=== PATIENT | female | born 1965 | race Caucasian/White ===

== ENCOUNTER → 2017-12-02 10:00 | Outpatient (CLI) | payer OTHER ==
[~2017-12-02 10:00] MED LIST: CALTRATE 600+D1 EAC1 PO; CALTRATE 600600 MG; CALTRATE 600600 MG PO; COREG 3.125 MG PO; COREG 6.25 MG PO; COREG CR10 MG; COREG CR10 MG PO; DECADRON P4 MG/ML-1M IH; DURICEF 500 MG CAPSULE PO; ESTR0.624 PO; HCTZ 12.5 MG PO; HYDROCHLOROTHIA25 MG; KETO10TA2 PO; LIPITOR20 MG PO; MEDROL4 MG PO; MOTRIN800 MG; MOTRIN800 MG PO; NEURONTIN800 MG; NEURONTIN800 MG PO; OXYC1TAB9 PO; PAMELOR10 M1 PO; PREMARIN0.45 MG; PREMARIN0.45 MG PO; REQUIP3 MG PO; TORADOL60 MG IM; TRAM1TAB98 PO; VOLTAREM 50 MG PO; VOLTAREM 75 MG; VOLTAREN PO; VOLTAREN75 MG; ZANTAC300 MG; ZANTAC300 MG PO; [UNRECOGNIZED DRUG - OTHER] PO
== END | disposition home or self-care (01) ==
LOC: PPHC 10:00
DX: M54.5 Low back pain (principal)

== ENCOUNTER 2017-12-11 08:38 | Outpatient (CLI) | payer OTHER | END 2017-12-11 08:41 | disposition home or self-care (01) | LOC: MRI 08:38 | DX: M51.36 Other intervertebral disc degeneration, lumbar region (principal) | CPT/HCPCS: 72148 ==

== ENCOUNTER 2017-12-22 05:59 | Emergency (ER) | payer OTHER ==
[~2017-12-22] VITALS: Ht 157.5 cm; Wt 79.4 kg
[2017-12-22] MEDS ORDERED: OSEL75CA PO (09:24)
== END 2017-12-22 10:49 | disposition home or self-care (01) ==
LOC: ER 05:59
DX: B34.9 Viral infection, unspecified (principal)

== ENCOUNTER → 2017-12-28 | Outpatient (CLI) | payer OTHER ==
[~2017-12-28] VITALS: Ht 152.4 cm; Wt 76.2 kg
[~2017-12-28] MED LIST changes: +OSEL75CA PO; +VOLTAREN-XR100 MG
== END | disposition home or self-care (01) ==
LOC: PPHC 08:46
DX: M54.5 Low back pain (principal); J06.9 Acute upper respiratory infection, unspecified

== ENCOUNTER → 2018-03-23 | Outpatient (CLI) | payer OTHER | END | disposition home or self-care (01) | LOC: PPHC 12:08 | DX: R60.0 Localized edema (principal) ==

== ENCOUNTER 2018-04-05 17:21 | Outpatient (CLI) | payer OTHER | END 2018-04-06 07:35 | disposition home or self-care (01) | LOC: RAD 17:21 | DX: M25.562 Pain in left knee (principal) ==

== ENCOUNTER 2018-04-13 11:03 | Outpatient (CLI) | payer OTHER | END 2018-04-13 11:10 | disposition home or self-care (01) | LOC: RAD 11:03 | DX: M25.531 Pain in right wrist (principal); M25.561 Pain in right knee; M25.562 Pain in left knee ==

== ENCOUNTER → 2018-07-20 06:56 | Outpatient (CLI) | payer OTHER | END | disposition home or self-care (01) | LOC: LAB 06:56 | DX: Z11.3 Encounter for screening for infections with a predominantly sexual mode of transmission (principal); I10 Essential (primary) hypertension; Z13.1 Encounter for screening for diabetes mellitus; Z12.11 Encounter for screening for malignant neoplasm of colon; M79.7 Fibromyalgia ==

== ENCOUNTER → 2018-07-27 07:02 | Outpatient (CLI) | payer OTHER | END | disposition home or self-care (01) | LOC: LAB 07:02 | DX: I10 Essential (primary) hypertension (principal); Z13.1 Encounter for screening for diabetes mellitus; Z12.11 Encounter for screening for malignant neoplasm of colon; M79.7 Fibromyalgia ==

== ENCOUNTER → 2018-08-16 07:18 | Outpatient (CLI) | payer OTHER | END | disposition home or self-care (01) | LOC: LAB 07:18 | DX: K92.1 Melena (principal) ==

== ENCOUNTER 2018-08-16 17:00 | Emergency (ER) | payer OTHER ==
[~2018-08-16] VITALS: Ht 160 cm; Wt 76.7 kg
[2018-08-16] MEDS ORDERED: PREMARIN0.45 MG (17:31)
== END 2018-08-16 20:19 | disposition home or self-care (01) ==
LOC: ER 17:00
DX: M54.5 Low back pain (principal)

== ENCOUNTER 2018-11-30 14:28 | Outpatient (CLI) | payer OTHER | END 2018-11-30 14:31 | disposition home or self-care (01) | LOC: RAD 14:28 | DX: M17.0 Bilateral primary osteoarthritis of knee (principal) ==

== ENCOUNTER 2019-02-18 10:10 | Outpatient (CLI) | payer OTHER | END 2019-02-18 15:00 | disposition home or self-care (01) | LOC: LAB 10:10 | DX: J11.1 Influenza due to unidentified influenza virus with other respiratory manifestations (principal); J06.9 Acute upper respiratory infection, unspecified ==

== ENCOUNTER 2019-04-15 20:58 | Emergency (ER) | payer OTHER ==
[~2019-04-15] VITALS: Ht 157.5 cm; Wt 69.4 kg
[2019-04-16] MEDS ORDERED: PREDNISONE20 MG PO (00:33)
[2019-04-16] MEDS ORDERED: TRAMADOL HCL50 MG PO (00:33)
[2019-04-16] MEDS ORDERED: SKELAXIN800 MG PO (00:33)
== END 2019-04-16 00:40 | disposition home or self-care (01) ==
LOC: ER 20:58
DX: M54.31 Sciatica, right side (principal)

== ENCOUNTER 2019-06-17 16:51 | Emergency (ER) | payer OTHER ==
[~2019-06-17] VITALS: Ht 157.5 cm; Wt 70.3 kg
[~2019-06-17 16:51] MED LIST changes: +PREDNISONE20 MG PO; +SKELAXIN800 MG PO; +TRAMADOL HCL50 MG PO
== END 2019-06-17 21:14 | disposition home or self-care (01) ==
LOC: ER 16:51
DX: M54.42 Lumbago with sciatica, left side (principal)

== ENCOUNTER 2019-07-21 14:25 | Inpatient (IN) | payer OTHER ==
[~2019-07-21] VITALS: Ht 157.5 cm; Wt 66.7 kg
[2019-07-22] MEDS ORDERED: HYDROCHLOROTHIA25 MG PO (07:41)
[2019-07-22] MEDS ORDERED: CARVEDILOL3.125 MG PO (07:41)
[2019-07-22] MEDS ORDERED: ZINC LOZENGES1 EACH PO (07:41)
[2019-07-22] MEDS ORDERED: PREMARIN0.45 MG PO (07:42)
[2019-07-22] MEDS ORDERED: CYMBALTA20 MG PO (07:42)
[2019-07-22] MEDS ORDERED: PROTONIX40 M1 PO (07:42)
[2019-07-22] MEDS ORDERED: REQUIP XL2 MG PO (07:43)
[2019-07-22] MEDS ORDERED: PAMELOR25 MG PO (07:43)
[2019-07-22] MEDS ORDERED: CALTRATE 600 +1 EACH PO (07:43)
[2019-07-28] MEDS ORDERED: INTEGRA PLUS C1 EACH PO (07:40)
[2019-07-28] MEDS ORDERED: OXYC1TAB9 PO (07:40)
[2019-07-28] MEDS ORDERED: XARELTO10 MG PO (07:40)
== END 2019-07-28 15:00 | disposition home or self-care (01) | DRG 470 ==
LOC: SURG 07-25 04:55 → O/R 07-25 04:55 → SURH 07-25 07:00 → SURG 07-25 10:43 → SURH 07-25 13:05 → SURG 07-28 15:00
PROVIDERS: ADMIT Orthopaedic Surgery Sports Medicine
PROC: 0SRC0J9 Replacement of Right Knee Joint with Synthetic Substitute, Cemented, Open Approach (ICD-10-PCS; principal; 2019-07-25 07:00)
DX: M17.11 Unilateral primary osteoarthritis, right knee (principal); I10 Essential (primary) hypertension

== ENCOUNTER 2019-10-11 10:14 | Outpatient (CLI) | payer OTHER ==
[~2019-10-11 10:14] MED LIST changes: +CALTRATE 600 +1 EACH PO; +CARVEDILOL3.125 MG PO; +CYMBALTA20 MG PO; +HYDROCHLOROTHIA25 MG PO; +INTEGRA PLUS C1 EACH PO; +PAMELOR25 MG PO; +PROTONIX40 M1 PO; +REQUIP XL2 MG PO; +XARELTO10 MG PO; +ZINC LOZENGES1 EACH PO
== END 2019-10-11 10:30 | disposition home or self-care (01) ==
LOC: RAD 10:14
DX: M25.561 Pain in right knee (principal)

== ENCOUNTER 2019-12-05 12:49 | Outpatient (CLI) | payer OTHER | END 2019-12-05 16:56 | disposition home or self-care (01) | LOC: LAB 12:49 | DX: J11.1 Influenza due to unidentified influenza virus with other respiratory manifestations (principal); J20.0 Acute bronchitis due to Mycoplasma pneumoniae ==

== ENCOUNTER → 2020-07-18 09:09 | Outpatient (CLI) | payer OTHER | END | disposition home or self-care (01) | LOC: LAB 09:09 | PROVIDERS: ATTEND Internal Medicine | DX: I11.9 Hypertensive heart disease without heart failure (principal); M06.09 Rheumatoid arthritis without rheumatoid factor, multiple sites; M06.4 Inflammatory polyarthropathy; I34.0 Nonrheumatic mitral (valve) insufficiency; E78.49 Other hyperlipidemia; E55.9 Vitamin D deficiency, unspecified; R73.01 Impaired fasting glucose; Z13.1 Encounter for screening for diabetes mellitus; D51.8 Other vitamin B12 deficiency anemias ==

== ENCOUNTER → 2020-07-26 | Outpatient (CLI) | payer OTHER | END | disposition home or self-care (01) | LOC: MAMO-SONO 12:08 | PROVIDERS: ATTEND Internal Medicine | DX: Z12.31 Encounter for screening mammogram for malignant neoplasm of breast (principal); I11.9 Hypertensive heart disease without heart failure; M06.4 Inflammatory polyarthropathy; M81.0 Age-related osteoporosis without current pathological fracture; N60.29 Fibroadenosis of unspecified breast; M17.12 Unilateral primary osteoarthritis, left knee ==

== ENCOUNTER 2020-08-02 12:16 | Outpatient (CLI) | payer OTHER | END 2020-08-02 12:22 | disposition home or self-care (01) | LOC: NUCLEAR 12:16 | PROVIDERS: ATTEND Internal Medicine | DX: M81.0 Age-related osteoporosis without current pathological fracture (principal) ==

== ENCOUNTER 2020-10-30 08:39 | Outpatient (CLI) | payer OTHER | END 2020-10-30 09:13 | disposition home or self-care (01) | LOC: NUCLEAR 08:39 | PROVIDERS: ATTEND Internal Medicine | DX: R00.2 Palpitations (principal) ==

== ENCOUNTER 2020-10-31 07:58 | Outpatient (CLI) | payer OTHER | END 2020-10-31 08:02 | disposition home or self-care (01) | LOC: LAB 07:58 | DX: N39.0 Urinary tract infection, site not specified (principal) ==

== ENCOUNTER 2020-11-02 07:27 | Outpatient (CLI) | payer OTHER | END 2020-11-02 15:00 | disposition home or self-care (01) | LOC: TOM 07:27 | DX: M51.37 Other intervertebral disc degeneration, lumbosacral region (principal); N20.0 Calculus of kidney ==